=== PATIENT | female | born 1970 | race Caucasian/White ===

== ENCOUNTER 2024-04-12 07:56 | Day surgery (SDC) | payer BC ==
[~2024-04-12] VITALS: Ht 144.8 cm; Wt 90.7 kg
[2024-04-12] MEDS ORDERED: SIMETHICONE 40 MG/0.6 ML ML ONE (08:17)
[2024-04-12] MEDS ORDERED: MEPERIDINE 100 MG INJ. 100 MG/ML VIAL ONE (08:18)
[2024-04-12] MEDS ORDERED: MIDAZOLAM HCL 5 MG/5 ML VIAL ONE (08:18)
[2024-04-12 14:24] VITALS: BP_SYST 138; PULSE 82; RESP 20; TEMP 98.4; O2SAT 98
== END 2024-04-12 11:20 | disposition home or self-care (01) ==
LOC: SDS 07:56 → SMU 08:03 → SDS 11:20
PROVIDERS: ATTEND Internal Medicine Gastroenterology
DX: Z12.11 Encounter for screening for malignant neoplasm of colon (principal); D12.3 Benign neoplasm of transverse colon; D12.7 Benign neoplasm of rectosigmoid junction; K57.92 Diverticulitis of intestine, part unspecified, without perforation or abscess without bleeding; K57.30 Diverticulosis of large intestine without perforation or abscess without bleeding; K64.8 Other hemorrhoids; J45.909 Unspecified asthma, uncomplicated; E66.9 Obesity, unspecified; M19.90 Unspecified osteoarthritis, unspecified site; G47.30 Sleep apnea, unspecified; Z68.43 Body mass index [BMI] 50.0-59.9, adult; Z79.899 Other long term (current) drug therapy
CPT/HCPCS: 45385; 99152; 88305; G0378; J2250; J2175; 45384